=== PATIENT | male | born 1995 | race Caucasian/White ===

== ENCOUNTER 2023-06-30 12:31 | Outpatient (CLI) | payer BC, SELFPAY | END 2023-06-30 12:32 | disposition home or self-care (01) | PROVIDERS: PCP Family Medicine; Visit Provider Family Medicine | DX: Z00.00 Encounter for general adult medical examination without abnormal findings (principal); I10 Essential (primary) hypertension; R53.83 Other fatigue; F41.9 Anxiety disorder, unspecified; Z13.6 Encounter for screening for cardiovascular disorders | CPT/HCPCS: 80053; 80061; 82306; 84443 ==

== ENCOUNTER 2024-11-14 09:20 | Outpatient (CLI) | payer OTHER, SELFPAY | END 2024-11-14 09:21 | disposition home or self-care (01) | PROVIDERS: PCP Family Medicine; Visit Provider Family Medicine | DX: E55.9 Vitamin D deficiency, unspecified (principal); I10 Essential (primary) hypertension; Z13.220 Encounter for screening for lipoid disorders; Z11.59 Encounter for screening for other viral diseases | CPT/HCPCS: 80053; 80061; 82043; 82306; 82570; 86803 ==

== ENCOUNTER 2024-11-22 07:03 | Outpatient (CLI) | payer OTHER, SELFPAY ==
--- OUTSIDE RECORDS SUMMARY | 2024-11-21 15:57 | XMS_ITS | Referral Summary ---
Author Organization [facility] Address [address] [place] [id number] Care Team Providers Care Electronics Mechanic Name Role Phone No Ref-Primary, Physician Primary Care Provider Allergies Active Allergy Reactions Criticality Noted Date Comments Amoxicillin 07/09/2016 Medications albuterol-ipratr opium (COMBIVENT) 18-103 MCG/ACT inhaler Inhale 2 puffs into the lungs every 6 hours as needed. 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 Gender Identity Not on file Sexual Orientation Not on file Last Filed Vital Signs Vital Sign Reading Time Taken Comments Blood Pressure 125/85 05/31/2017 9:40 AM CDT Pulse 113 07/09/2016 4:28 PM CDT Temperature 36.7 C (98 F) 07/09/2016 4:28 PM CDT Respiratory Rate 16 05/31/2017 9:40 AM CDT Oxygen Saturation 96% 05/31/2017 9:40 AM CDT Inhaled Oxygen Concentration - - Weight 97.5 kg (215 lb) 05/31/2017 8:10 AM CDT Height 182.9 cm (6') 05/31/2017 8:10 AM CDT Body Mass Index 29.16 05/31/2017 8:10 AM CDT Plan of Treatment Not on file [place] [address] Care Teams Electronics Mechanic Relationship Specialty Start Date End Date No Ref-Primary, Physician PCP - General 03/24/20
--- OUTSIDE RECORDS SUMMARY | 2024-11-21 15:57 | XMS_ITS | Clinical Summary ---
Author Organization [facility] Address [address] [place] [id number] Care Team Providers Care Cmo Name Role Phone No Ref-Primary, Physician Primary Care Provider Allergies Active Allergy Reactions Criticality Noted Date Comments Amoxicillin 07/09/2016 Medications albuterol-ipratr opium (COMBIVENT) 18-103 MCG/ACT inhaler Inhale 2 puffs into the lungs every 6 hours as needed. 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 Gender Identity Not on file Sexual Orientation [...] 05/31/2017 8:10 AM CDT Plan of Treatment Health Maintenance Due Date Last Done Comments ADVANCE CARE PLANNING 1994 ANNUAL REVIEW OF HM ORDERS 1994 YEARLY PREVENTIVE VISIT 1997 HIV SCREENING 2009 HEPATITIS C SCREENING 2012 PHQ-2 (once per calendar year) 2023 COVID-19 Vaccine (3 season) 2024 12/08/2021, 02/27/2021 DTAP/TDAP/TD IMMUNIZATION (9 - Td or Tdap) 11/14/2034 11/14/2024, 06/19/2019, 10/02/2006, Additional history exists RSV VACCINE (1 - 1-dose 75+ series) 2069 HEPATITIS B IMMUNIZATION Completed 995, 01/24/1995, 1994 MENINGITIS IMMUNIZATION Completed 10/12/2011, 06/11 INFLUENZA VACCINE Completed 11/14/2024, , 10/16/2020, Additional history exists HPV IMMUNIZATION Aged Out No longer e ligible based on patient's age to complete this topic Pneumococcal Vaccine: Pediatrics (0 to 5 Years) and At-Risk Patients (6 to 49 Years) Aged Out No longer eligible based on patient's age to complete this topic RSV MONOCLONAL ANTIBODY Aged Out No l onger eligible based on patient's age to complete this topic Insurance BCBS OUT OF STATE Care Teams Cmo Relationship Specialty Start Date End Date No Ref-Primary, Physician PCP - General 03/24/20
--- NOTE | 2024-11-22 07:15 | CRLHL7_ITS ---
For Patients: As a result of the Century Cures Act, medical imaging exams and procedure reports are released immediately into your electronic medical record. You may view this report before your referring provider. If you have questions, please contact your health care provider. INDICATION: Elevated liver transaminases. TECHNIQUE: Ultrasound abdomen limited. Sonographic images of the right upper quadrant were obtained using hines-scale and color Doppler images. COMPARISON: None FINDINGS: Liver: Diffusely increased in echogenicity with craniocaudal diameter of 17.5 centimeters. No masses. No intrahepatic biliary dilatation. Gallbladder: No stones or sludge. Normal wall thickness. No pericholecystic fluid. Common bile duct: 4 mm. Pancreas: Partially obscured by bowel gas without focal lesion. Right kidney: Normal in size. Normal echotexture and cortex. No masses, stones, or hydronephrosis. Vasculature: Proximal abdominal aorta and IVC are normal. IMPRESSION: Mild hepatomegaly with moderate to severe hepatic steatosis. Dictated by Melvin Ying MD @ 11/22/2024 7:59:38 AM (Electronically Signed)
== END 2024-11-22 07:04 | disposition home or self-care (01) ==
LOC: US 07:04
PROVIDERS: PCP Family Medicine; Visit Provider Family Medicine
DX: R74.01 Elevation of levels of liver transaminase levels (principal); K76.0 Fatty (change of) liver, not elsewhere classified
CPT/HCPCS: 76705